=== PATIENT | female | born 1990 | race Caucasian/White ===

== ENCOUNTER 2021-08-26 06:00 | Outpatient (RCR) | payer BC, SELFPAY | END 2021-09-11 23:59 | disposition home or self-care (01) | LOC: SPT 06:00 | PROVIDERS: PCP Family Medicine; Visit Provider Nurse Practitioner Family | DX: M54.42 Lumbago with sciatica, left side (principal); G89.29 Other chronic pain | CPT/HCPCS: 97161 ==

== ENCOUNTER 2021-10-02 23:25 | Emergency (ER) | payer BC, SELFPAY ==
[2021-10-02 23:34] VITALS: BP 146/77; PULSE 102; RESP 18; TEMP 36.6; O2SAT 98
[2021-10-03 00:09] LABS: Basophils # 0.1 10^3/uL (0.0-0.1); Basophils % 0.5 %; Eosinophils # 0.4 10^3/uL (0.0-0.8); Eosinophils % 2.8 %; Hematocrit 42.1 % (37.0-47.0); Hemoglobin 13.1 g/dL (11.5-15.3); Lymphocytes # 2.6 10^3/uL (0.8-4.8); Mean Corpuscular HGB Conc 31.1 g/dL (30.0-36.0); Mean Corpuscular Hemoglobin 26.1 pg (28.0-34.0); Mean Corpuscular Volume 83.9 fl (81-99); Mean Platelet Volume 10.6 fL (7.4-10.4); Monocytes # 0.7 10^3/uL (0.2-0.9); Monocytes % 5.4 %; Neutrophils # 8.72 10^3/uL (1.8-7.7); Neutrophils % 69.8 %; Nucleated Red Blood Cells % 0 %; Platelet Count 449 10^3/cmm (130-400); Red Blood Count 5.02 10^6/uL (4.1-5.3); Red Cell Distribution Width 14.5 % (12.1-15.1); White Blood Count 12.5 10^3/uL (4.0-10.0)
[2021-10-03 00:27] LABS: Alanine Aminotransferase 41 U/L (0-33); Alkaline Phosphatase 116 IU/L (35-105); Anion Gap 18.7 (5-19); Aspartate Amino Transferase 58 U/L (0-32); Blood Urea Nitrogen 8 mg/dL (6-20); Calcium 9.6 mg/dL (8.5-10.5); Carbon Dioxide 24 mmol/L (22-29); Chloride 99 mmol/L (98-107); Glomerular Filtration Rate 98.3 mL/min (90-130); Glucose 117 mg/dL (65-115); Lipase 34 U/L (13-60); Osmolality Calculated 285 mOsm/kg (285-295); Potassium 3.7 mmol/L (3.5-5.1); Sodium 138 mmol/L (136-145); Total Bilirubin 0.6 mg/dL (0.15-1.2)
--- NOTE | 2021-10-03 00:43 | W.ED.ABDPA2 ---
Documented by User: TRAVON Guzman 10/03/21 02:32 HPI - Abdominal Pain General: Chief Complaint: Abdominal Pain Stated Complaint: N\V Gallbladder Time Seen by Provider: 10/03/21 00:43 History of Present Illness: HPI narrative: 31-year-old female comes in today with complaints of right upper quadrant abdominal pain. Patient denies any fever. Patient does report some vomiting. Patient reports 3 different episodes over the last 2 months. Associated Symptoms: Reports nausea and vomiting Review of Systems GI: Reports: abdominal pain, nausea and vomiting PFSH ED PFSH: Social History Smoking and tobacco status: former smoker Physical Exam Const: COMMON NORMALS: healthy appearing and alert GENERAL APPEARANCE: well kempt NUTRITIONAL APPEARANCE: obese HENMT: COMMON NORMALS: normocephalic HEAD & SCALP: normocephalic Eye: COMMON NORMALS: Equal, round and reactive pupils present and EOMs intact bilaterally PUPIL: Yes Equal, round and reactive pupils present Neck/C-Spine: COMMON NORMALS: full ROM Lymph: LYMPHATIC: no lymphadenopathy noted Resp: COMMON NORMALS: normal respiratory effort and clear to auscultation bilaterally AUSCULTATION: clear to auscultation bilaterally Cardio: COMMON NORMALS: regular rate and regular rhythm RATE: regular rate RHYTHM: regular rhythm GI: COMMON NORMALS: Soft to palpation PALPATION: Yes Soft to palpation and Yes Tenderness to palpation present (GI) Details: RUQ Neuro: SENSORIUM/ORIENTATION: Yes alert Psych: APPEARANCE: Yes well kempt ATTITUDE: Yes calm Course Vital Signs: Vital signs: Vital Signs Temperature 97.8 F 10/02/21 23:34 Pulse Rate 102 H 10/02/21 23:34 Respiratory Rate 18 10/02/21 23:34 Blood Pressure 146/77 10/02/21 23:34 Pulse Oximetry 98 10/02/21 23:34 MDM - Abdominal Pain MDM Narrative: Medical decision making narrative: 31-year-old female comes in today with right upper quadrant abdominal pain. Patient reports episodes of abdominal pain for the last 2 months. Patient is concerned that she may have gallbladder problems. On exam patient has right upper quadrant abdominal tenderness. Bowel sounds are present. Skin is warm and dry. Vital signs are normal. Differential diagnosis includes cholecystitis, pancreatitis, gastritis. Laboratory values notes a white blood cell count 12.5, patient does have some elevation in his liver enzymes in the AST's, ALTs, and alkaline phosphatase. Lipase and bilirubin were normal. Ultrasound of the gallbladder does note cholelithiasis without signs of cholecystitis at this time. Reviewed exam with patient with recommendations for treatment and follow-up. Patient will monitor for fever, and uncontrolled pain at home. Case management will be contacted to help with patient with referral to surgery for further evaluation and treatment of gallbladder disease. Patient reported understanding and agreed to plan. Lab Data: Labs: Lab Results 10/02/21 10/02/21 10/03/21 23:53 23:53 00:48 WBC 12.5 10^3/uL H 10 ^3/uL (4.0-10.0) RBC 5.02 10^6/uL 10^6 /uL (4.1-5.3) Hgb 13.1 g/dL g/dL (11.5-15.3) Hct 42.1 % % (37.0-47.0) MCV 83.9 fl fl (81-99) MCH 26.1 pg L pg (28.0-34.0) MCHC 31.1 g/dL g/dL (30.0-36.0) RDW 14.5 % % (12.1-15.1) Plt Count 449 10^3/cmm H 10 ^3/cmm (130-400) MPV 10.6 fL H fL (7.4-10.4) Neut % (Auto) 69.8 % % Lymph % (Auto) 21.0 % % Bent % (Auto) 5.4 % % Eos % (Auto) 2.8 % % Baso % (Auto) 0.5 % % Neut # (Auto) 8.72 10^3/uL H 10 ^3/uL (1.8-7.7) Lymph # (Auto) 2.6 10^3/uL 10^3/ uL (0.8-4.8) Bent # (Auto) 0.7 10^3/uL 10^3/ uL (0.2-0.9) Eos # (Auto) 0.4 10^3/uL 10^3/ uL (0.0-0.8) Baso # (Auto) 0.1 10^3/uL 10^3/ uL (0.0-0.1) Nucleated RBC % (a uto) 0 % % Nucleated RBCs # 0.0 /100WBC /100W BC Sodium 138 mmol/L mmol/L (136-145) Potassium 3.7 mmol/L mmol/L (3.5-5.1) Chloride 99 mmol/L mmol/L (98-107) Carbon Dioxide 24 mmol/L mmol/L (22-29) Anion Gap 18.7 (5-19) BUN 8 mg/dL mg/dL (6-20) Creatinine 0.7 mg/dL mg/dL (0.5-0.9) GFR Calculation 98.3 mL/min mL/mi n (90-130) Glucose 117 mg/dL H mg/dL (65-115) Calculated Osmolal ity 285 mOsm/kg mOsm/ kg (285-295) Calcium 9.6 mg/dL mg/dL (8.5-10.5) Total Bilirubin 0.6 mg/dL mg/dL (0.15-1.2) AST 58 U/L H U/L (0-32) ALT 41 U/L H U/L (0-33) Alkaline Phosphata se 116 IU/L H IU/L (35-105) Total Protein 7.0 g/dL g/dL (6.6-8.7) Albumin 4.0 g/dL g/dL (3.5-5.2) Globulin 3.0 g/dL g/dL (1.3-4.6) Lipase 34 U/L U/L (13-60) HCG, Qual Negative (Negative) Urine Color Urine Appearance Urine pH Ur Specific Gravit y Urine Protein Urine Glucose (UA) Urine Ketones Urine Blood Urine Nitrate Urine Bilirubin Urine Urobilinogen Ur Leukocyte Chrystal ase Urine RBC Urine WBC Ur Squamous Epith Cells Calcium Oxalate Cr ystal Amorphous Sediment Urine Bacteria 10/03/21 01:07 WBC RBC Hgb Hct MCV MCH MCHC RDW Plt Count MPV Neut % (Auto) Lymph % (Auto) Bent % (Auto) Eos % (Auto) Baso % (Auto) Neut # (Auto) Lymph # (Auto) Bent # (Auto) Eos # (Auto) Baso # (Auto) Nucleated RBC % (a uto) Nucleated RBCs # Sodium Potassium Chloride Carbon Dioxide Anion Gap BUN Creatinine GFR Calculation Glucose Calculated Osmolal ity Calcium Total Bilirubin AST ALT Alkaline Phosphata se Total Protein Albumin Globulin Lipase HCG, Qual Urine Color Dark yellow (Yellow) Urine Appearance Sl cloudy A (CLEAR) Urine pH 7 (5-7) Ur Specific Gravit y 1.020 (1.005-1.030) Urine Protein Neg (Negative) Urine Glucose (UA) Norm (Normal) Urine Ketones 1+ H (Negative) Urine Blood 3+ H (Negative) Urine Nitrate Negative (Negative) Urine Bilirubin 1+ H (Negative) Urine Urobilinogen 4 mg/dL H mg/dL (Negative) Ur Leukocyte Chrystal ase 1+ H (Negative) Urine RBC 15-25 /hpf H /hpf (0-2) Urine WBC 0-4 /hpf H /hpf (0-5) Ur Squamous Epith Cells 15-25 /hpf H /hpf (0-5) Calcium Oxalate Cr ystal 0-4 /hpf H /hpf Amorphous Sediment 2+ /hpf /hpf Urine Bacteria 2+ /hpf H /hpf (NONE) Discharge Plan Discharge Patient Disposition: Home Clinical Impression: Cholelithiasis Qualifiers: Cholelithiasis location: gallbladder Cholecystitis presence: without cholecystitis Biliary obstruction: without biliary obstruction Qualified Code(s): K80.20 - Calculus of gallbladder without cholecystitis without obstruction Condition: Stable Prescriptions: New hydrocodone-acetaminophen 5-325 mg tablet 1 tab PO Q8H PRN (Reason: pain (scale score 7-10)) Qty: 14 RF: 0 ondansetron 4 mg tablet,disintegrating 4 mg PO Q8H PRN (Reason: nausea and vomiting) Qty: 10 RF: 0 No Action tizanidine [Zanaflex] 2 mg capsule 2 mg PO Q8H PRNRF: 0 prednisone 20 mg tablet See Rx Instructions PO DAILY 11 Days Qty: 19 RF: 0 Discharge Orders: Discharge ED (Routine); Ordered 10/03/21 Ordered By: Valentino Salinas Referrals: Boo Diego MD [Primary Care Provider] - Discharge Diet: Usual diet Discharge Activity: Increase activity as tolerated Patient Instructions: Biliary Colic (ED), Opioid Safety Activity Restrictions/Additional Instructions: Home and rest. Drink plenty of fluids. Use medication as needed for pain and nausea. Avoid a diet with high fat. Try to eat a light diet with bland foods such as bananas, rice, apples, toast, and boiled chicken. Fatty meals may exacerbate gallbladder pain. Case management will contact you regarding your surgical follow-up. Return to the ER for high fever, uncontrolled abdominal pain, or new concerns. Coding Level of Care Code ED Principal Cyber Engineer for Chg Fwd Exam Comprehensive Documented by User: Logan Meadows DO 10/03/21 03:13 HPI - Abdominal Pain General: Chief Complaint: Abdominal Pain Stated Complaint: N\V Gallbladder Time Seen by Provider: 10/03/21 00:43 PFSH ED PFSH: Social History Smoking and tobacco status: former smoker Course Vital Signs: Vital signs: Vital Signs Temperature 97.8 F 10/02/21 23:34 Pulse Rate 102 H 10/02/21 23:34 Respiratory Rate 18 10/02/21 23:34 Blood Pressure 146/77 10/02/21 23:34 Pulse Oximetry 98 10/02/21 23:34 MDM - Abdominal Pain MDM Narrative: Medical decision making narrative: This patient was originally seen by TRAVON Zelaya. I agree with his history, evaluation, and treatment. Lab Data: Labs: Lab Results 10/02/21 10/02/21 10/03/21 23:53 23:53 00:48 WBC 12.5 10^3/uL H 10 ^3/uL (4.0-10.0) RBC 5.02 10^6/uL 10^6 /uL (4.1-5.3) Hgb 13.1 g/dL g/dL (11.5-15.3) Hct 42.1 % % (37.0-47.0) MCV 83.9 fl fl (81-99) MCH 26.1 pg L pg (28.0-34.0) MCHC 31.1 g/dL g/dL (30.0-36.0) RDW 14.5 % % (12.1-15.1) Plt Count 449 10^3/cmm H 10 ^3/cmm (130-400) MPV 10.6 fL H fL (7.4-10.4) Neut % (Auto) 69.8 % % Lymph % (Auto) 21.0 % % Bent % (Auto) 5.4 % % Eos % (Auto) 2.8 % % Baso % (Auto) 0.5 % % Neut # (Auto) 8.72 10^3/uL H 10 ^3/uL (1.8-7.7) Lymph # (Auto) 2.6 10^3/uL 10^3/ uL (0.8-4.8) Bent # (Auto) 0.7 10^3/uL 10^3/ uL (0.2-0.9) Eos # (Auto) 0.4 10^3/uL 10^3/ uL (0.0-0.8) Baso # (Auto) 0.1 10^3/uL 10^3/ uL (0.0-0.1) Nucleated RBC % (a uto) 0 % % Nucleated RBCs # 0.0 /100WBC /100W BC Sodium 138 mmol/L mmol/L (136-145) Potassium 3.7 mmol/L mmol/L (3.5-5.1) Chloride 99 mmol/L mmol/L (98-107) Carbon Dioxide 24 mmol/L mmol/L (22-29) Anion Gap 18.7 (5-19) BUN 8 mg/dL mg/dL (6-20) Creatinine 0.7 mg/dL mg/dL (0.5-0.9) GFR Calculation 98.3 mL/min mL/mi n (90-130) Glucose 117 mg/dL H mg/dL (65-115) Calculated Osmolal ity 285 mOsm/kg mOsm/ kg (285-295) Calcium 9.6 mg/dL mg/dL (8.5-10.5) Total Bilirubin 0.6 mg/dL mg/dL (0.15-1.2) AST 58 U/L H U/L (0-32) ALT 41 U/L H U/L (0-33) Alkaline Phosphata se 116 IU/L H IU/L (35-105) Total Protein 7.0 g/dL g/dL (6.6-8.7) Albumin 4.0 g/dL g/dL (3.5-5.2) Globulin 3.0 g/dL g/dL (1.3-4.6) Lipase 34 U/L U/L (13-60) HCG, Qual Negative (Negative) Urine Color Urine Appearance Urine pH Ur Specific Gravit y Urine Protein Urine Glucose (UA) Urine Ketones Urine Blood Urine Nitrate Urine Bilirubin Urine Urobilinogen Ur Leukocyte Chrystal ase Urine RBC Urine WBC Ur Squamous Epith Cells Calcium Oxalate Cr ystal Amorphous Sediment Urine Bacteria 10/03/21 01:07 WBC RBC Hgb Hct MCV MCH MCHC RDW Plt Count MPV Neut % (Auto) Lymph % (Auto) Bent % (Auto) Eos % (Auto) Baso % (Auto) Neut # (Auto) Lymph # (Auto) Bent # (Auto) Eos # (Auto) Baso # (Auto) Nucleated RBC % (a uto) Nucleated RBCs # Sodium Potassium Chloride Carbon Dioxide Anion Gap BUN Creatinine GFR Calculation Glucose Calculated Osmolal ity Calcium Total Bilirubin AST ALT Alkaline Phosphata se Total Protein Albumin Globulin Lipase HCG, Qual Urine Color Dark yellow (Yellow) Urine Appearance Sl cloudy A (CLEAR) Urine pH 7 (5-7) Ur Specific Gravit y 1.020 (1.005-1.030) Urine Protein Neg (Negative) Urine Glucose (UA) Norm (Normal) Urine Ketones 1+ H (Negative) Urine Blood 3+ H (Negative) Urine Nitrate Negative (Negative) Urine Bilirubin 1+ H (Negative) Urine Urobilinogen 4 mg/dL H mg/dL (Negative) Ur Leukocyte Chrystal ase 1+ H (Negative) Urine RBC 15-25 /hpf H /hpf (0-2) Urine WBC 0-4 /hpf H /hpf (0-5) Ur Squamous Epith Cells 15-25 /hpf H /hpf (0-5) Calcium Oxalate Cr ystal 0-4 /hpf H /hpf Amorphous Sediment 2+ /hpf /hpf Urine Bacteria 2+ /hpf H /hpf (NONE) Discharge Plan Discharge Patient Disposition: Home Clinical Impression: Cholelithiasis Qualifiers: Cholelithiasis location: gallbladder Cholecystitis presence: without cholecystitis Biliary obstruction: without biliary obstruction Qualified Code(s): K80.20 - Calculus of gallbladder without cholecystitis without obstruction Condition: Stable Prescriptions: New hydrocodone-acetaminophen 5-325 mg tablet 1 tab PO Q8H PRN (Reason: pain (scale score 7-10)) Qty: 14 RF: 0 ondansetron 4 mg tablet,disintegrating 4 mg PO Q8H PRN (Reason: nausea and vomiting) Qty: 10 RF: 0 No Action tizanidine [Zanaflex] 2 mg capsule 2 mg PO Q8H PRNRF: 0 prednisone 20 mg tablet See Rx Instructions PO DAILY 11 Days Qty: 19 RF: 0 Discharge Orders: Discharge ED (Routine); Ordered 10/03/21 Ordered By: Valentino Salinas Referrals: Boo Diego MD [Primary Care Provider] - Discharge Diet: Usual diet Discharge Activity: Increase activity as tolerated Patient Instructions: Biliary Colic (ED), Opioid Safety Activity Restrictions/Additional Instructions: Home and rest. Drink plenty of fluids. Use medication as needed for pain and nausea. Avoid a diet with high fat. Try to eat a light diet with bland foods such as bananas, rice, apples, toast, and boiled chicken. Fatty meals may exacerbate gallbladder pain. Case management will contact you regarding your surgical follow-up. Return to the ER for high fever, uncontrolled abdominal pain, or new concerns. Coding Level of Care Code ED Principal Cyber Engineer for Rose Mary Fwtawnya Exam Comprehensive
--- NOTE | 2021-10-03 00:55 | USR_ITS ---
PROCEDURE INFORMATION: Exam: US Abdomen, Limited; Right Upper Quadrant Exam date and time: 10/03/2021 12:55 AM Age: 31 years old Clinical indication: Abdominal pain; Additional info: Ruq pain, elevated liver enzymes TECHNIQUE: Imaging protocol: US abdomen. Real time ultrasound with image documentation. Limited exam focused on the right upper quadrant. COMPARISON: [place] 1st [place] [id number] 02/19/2017 8:33 AM FINDINGS: Liver: The liver is prominent measuring 18.4 cm craniocaudal dimension. There is hyperechogenicity of the hepatic parenchyma compatible with fatty infiltration. Gallbladder: Hyperechoic foci are seen within the gallbladder lumen compatible with gallstones. There is mild gallbladder wall thickening is measured at 3.4 mm. A positive sonographic Dave sign is elicited as well. These findings compatible with gallstone cholecystitis. Common bile duct: Common bile duct is mildly prominent measuring 10 mm in diameter. There is no evidence for choledocholithiasis or extrinsic masses within the visualized common bile duct. Pancreas: Visualized pancreas is unremarkable. Right kidney: Normal. No mass. No hydronephrosis. US/US gall bladder [id number] IMPRESSION: 1. Gallstones, gallbladder wall thickening measuring 3.4 mm and positive sonographic Dave sign, findings compatible with gallstone cholecystitis. 2. Mildly prominent common bile duct measuring 10 mm without evidence of choledocholithiasis or extrinsic masses within the visualized common bile duct. 3. Hepatomegaly and fatty infiltration of the liver
[2021-10-03 01:10] LABS: HCG, Serum Qual Negative (Negative)
[2021-10-03 01:24] LABS: Bilirubin Urine 1+ (Negative); Blood Urine 3+ (Negative); Glucose Urine UA Norm (Normal); Ketones Urine 1+ (Negative); Nitrate Urine Negative (Negative); Protein Urine Neg (Negative); Urine Color Dark Yellow (Yellow); Urobilinogen Urine 4 mg/dL (Negative); pH Urine 7 (5-7)
[2021-10-03 01:25] LABS: Add Urine Microscopic? YES; Leukocyte Esterase Urine 1+ (Negative)
[2021-10-03] MEDS: ondansetron 4 MG Tablet PO (01:57)
[2021-10-03] MEDS: HYDROcodone-acetaminophen 7.5-325 mg Tablet 1 TAB PO (01:57)
[2021-10-03 02:04] LABS: Amorphous Sediment Urine 2+ /hpf; Bacteria Urine 2+ /hpf; Calcium Oxalate Crystals Urine 0-4 /hpf; RBC Urine 15-25 /hpf (0-2); Squamous Epithelial Cell Urine 15-25 /hpf (0-5); WBC Urine 0-4 /hpf (0-5)
[2021-10-03 02:05] LABS: Add Urine Culture? No
--- NOTE | 2021-10-03 09:47 | DCPLANNER ---
Addendum entered by Ileana Rodriguez 10/16/21 12:34: associate product manager was contacted by general surgery. associate product manager was told that when clinic called patient to schedule a follow up appointment that patient declined appointment at this time. Original Note: associate product manager had message to schedule a follow up appointment for patient with general surgery. associate product manager emailed patients information to Elidia Villagomez and Angelica at [facility] General Surgery / ENT clinic. Patients information will be printed and reviewed. Clinic will call patient with appointment information.
== END 2021-10-03 02:55 | disposition home or self-care (01) ==
PROVIDERS: Emergency Provider Nurse Practitioner Family; PCP Family Medicine
DX: K80.20 Calculus of gallbladder without cholecystitis without obstruction (principal); Z87.891 Personal history of nicotine dependence
CPT/HCPCS: 76705; 80053; 81001; 83690; 84703; 85025; 99283; Q0162

== ENCOUNTER 2024-07-07 22:50 | Emergency (ER) | payer BC, SELFPAY ==
[2024-07-07 22:57] VITALS: BP 151/95; PULSE 95; RESP 17; TEMP 36.8; O2SAT 98; BMI 51.0
--- NOTE | 2024-07-07 23:10 | ED_ITS ---
HPI - Extremity Problem General: Chief complaint: Extremity Injury, Lower Stated complaint: sent from [facility]- left leg pain Time Seen by Provider: 07/07/24 23:09 History of Present Illness: 34-year-old female sent from an outside facility for an ultrasound of the left leg due to concern for the potential of a DVT. She has had posterior calf pain for the past couple of days. Some swelling. Some tenderness. Some warmth. No redness. No fever. No significant injury Related Data Previous Rx's Medication Instructions Recorded celecoxib 200 mg capsule 200 mg PO BID shoulder pain #30 09/01/22 caps amoxicillin 875 mg tablet 875 mg PO BID ear infection #14 09/17/22 tabs ciprofloxacin HCl 0.2 % ear drops 3 drp otic (ear) BID ear infection 09/17/22 in a dropperette #14 ea aspirin 325 mg capsule 325 mg PO BID #60 caps 07/08/24 hydrocodone 5 mg-acetaminophen 325 1 tab PO Q8H PRN pain #7 tabs 07/08/24 mg tablet Allergies Allergy/AdvReac Type Severity Reaction Status Date / Time No Known Allergies Allergy Verified 07/07/24 22:57 [facility] ED PFS: Medical History (Updated 07/08/24 @ 01:19 by Logan Meadows DO) URI with cough and congestion Strain of right hip and thigh Bilateral otitis externa Muscle strain, shoulder region Social History Smoking and tobacco/nicotine status: former use of tobacco/nicotine Female Reproductive History: Date of last menstrual period: 07/04/24 Physical Exam Const: COMMON NORMALS: no acute distress GENERAL APPEARANCE: cooperative; not ill appearing and not frail appearing HENMT: COMMON NORMALS: normocephalic, atraumatic and Normal external nose present HEAD & SCALP: normocephalic and atraumatic FACE & SINUS: normal facial exam and face symmetric NOSE: Normal external nose present Eye: COMMON NORMALS: Equal, round and reactive pupils present and EOMs intact bilaterally PUPIL: Yes Equal, round and reactive pupils present Neck/C-Spine: GENERAL: Yes trachea midline Chest: CHEST: Yes Symmetrical chest wall rise Resp: COMMON NORMALS: normal respiratory effort, No retractions, No use of accessory muscles and clear to auscultation bilaterally AUSCULTATION: clear to auscultation bilaterally Cardio: COMMON NORMALS: regular rate and regular rhythm RATE: regular rate RHYTHM: regular rhythm GI: COMMON NORMALS: Normal to inspection, nondistended, normoactive bowel sounds present Extremity: COMMON NORMALS: no pedal edema NARRATIVE EXTREMITY EXAM: Exam the left lower extremity reveals tenderness over the medial calf muscle mid substance. There is no deformity. There is a hard tender area. There is no warmth or redness. No other significant tenderness. Neuro: CLARIBEL COMA SCALE: document GCS findings Claribel coma scale eye opening: Spontaneous [place] coma scale verbal response: Orientated Claribel coma scale motor response: Obey commands [place] coma scale total score: 15 SENSORY EXAM: Yes extremities (intact) Psych: COMMON NORMALS: speech normal SPEECH: Yes normal speech Skin: COMMON NORMALS: no rashes or lesions noted GENERAL SKIN EXAM: no rashes or lesions noted Course Vital Signs: Vital signs: Vital Signs Temperature 98.3 F 07/07/24 22:57 Pulse Rate 81 07/08/24 01:42 Respiratory Rate 19 H 07/08/24 01:42 Blood Pressure 122/82 07/08/24 01:42 Pulse Oximetry 95 07/08/24 01:42 Oxygen Delivery Me thod Room Air 07/08/24 01:42 MDM - Extremity (Nontraumatic) Medical Decision Making Bedside ultrasound reveals no DVT. She may have superficial thrombophlebitis in one of the smaller veins. She will be treated with aspirin twice daily. She can take anti-inflammatories otherwise if not taking aspirin. Outpatient follow-up. Return for new or worsening symptoms. Lab Data Radiology Impressions Venous Duplex 07/08/24 00:04 IMPRESSION: No evidence of deep vein thrombosis. XR interpretation done by ED provider, pending radiology final review Discharge Plan Discharge Patient Disposition: Home Clinical Impression: Superficial thrombophlebitis Condition: Stable Prescriptions: New hydrocodone-acetaminophen 5-325 mg tablet 1 tab PO Q8H PRN (Reason: pain) Qty: 7 0RF aspirin 325 mg capsule 325 mg PO BID Qty: 60 0RF No Action amoxicillin 875 mg tablet 875 mg PO BID Qty: 14 0RF ciprofloxacin HCl 0.2 % dropperette 3 drp otic (ear) BID Qty: 14 0RF celecoxib 200 mg capsule 200 mg PO BID Qty: 30 0RF Discharge Orders: Discharge ED (Routine); Ordered 07/08/24 Ordered By: Logan Meadows Referrals: Genna Sheridan DO [Primary Care Provider] - Patient Instructions: Superficial Thrombophlebitis (ED), Opioid Safety, Pain Management Activity Restrictions/Additional Instructions: Return for fever, redness, worsening swelling, worsening pain despite treatment, other concerning symptoms. See your doctor next week Coding Level of Care Code ED Superintendent Recreation for Rose Mary Scott
[2024-07-07] MEDS: oxyCODONE-APAP 5-325 mg Tablet 2 TAB PO (23:42)
[2024-07-07 23:53] VITALS: BP 122/91; PULSE 92; RESP 16; O2SAT 97
--- NOTE | 2024-07-08 00:04 | USR_ITS ---
PROCEDURE INFORMATION: Exam: US Duplex Left Lower Extremity Veins, Limited Exam date and time: 07/08/2024 12:40 AM Age: 34 years old Clinical indication: Pain; Leg, lower; Left; Additional info: Calf pain TECHNIQUE: Imaging protocol: Real-time duplex ultrasound of the left extremity with 2-D oviedo scale, color Doppler flow and spectral waveform analysis including responses to compression and other maneuvers (when performed) with image documentation. Limited exam focused on the left lower extremity veins. COMPARISON: No relevant prior studies available. FINDINGS: Left deep veins: Unremarkable. The common femoral, femoral, proximal profunda femoral and popliteal veins are patent without thrombus. Normal Doppler waveforms. Normal compressibility and/or augmentation response. Superficial veins: Greater saphenous vein at the saphenofemoral junction is patent without thrombus. Soft tissues: Unremarkable. US/CV venous duplex [facility] [id number] IMPRESSION: No evidence of deep vein thrombosis.
[2024-07-08 01:40] VITALS: BP 122/82; PULSE 81; O2SAT 95
[2024-07-08 01:42] VITALS: BP 122/82; PULSE 81; RESP 19; O2SAT 95
== END 2024-07-08 01:42 | disposition home or self-care (01) ==
PROVIDERS: Emergency Provider Emergency Medicine; PCP Family Medicine
DX: I80.02 Phlebitis and thrombophlebitis of superficial vessels of left lower extremity (principal)
CPT/HCPCS: 93971; 99284